=== PATIENT | female | born 1940 | race Caucasian/White ===

== ENCOUNTER 2016-11-26 15:18 | Emergency (ER) | payer MEDICARE, OTHER ==
--- NOTE | ~2016-11-26 | ER ---
PATIENT'S NAME: ALFREDO [facility] AGE: 76 Y [address] ROOM: [place] [address] LOCATION: ED ADMIT DATE: 11/26/2016 ER/Outpatient Report DISCHARGE DATE: 11/26/2016 FAMILY PHYSICIAN: Romina Boggs MD ATTENDING PHYSICIAN: Celina Field Time of Arrival: 1518. Time Seen: 1518. IDENTIFICATION: 76-year-old female. CHIEF COMPLAINT: Syncopal episode. HISTORY OF PRESENT ILLNESS: The patient is a 76-year-old female from [place], [place], who was here watching volleyball at [employer]. She became very hot and felt like she was going to pass out and slumped over her daughter. She did not fall and did not get injured. She does have a pacemaker for what sounds like sick sinus syndrome. She has felt like this before prior to her pacemaker. She denies any chest pain. She denies any cough or shortness of breath. ALLERGIES: LEXAPRO. CURRENT MEDICATIONS: 1. Lisinopril 10 mg daily. 2. Atorvastatin 20 mg at bedtime. 3. Metoprolol 25 mg b.i.d. 4. Lumigan eye drops at bedtime. 5. Combigan eyedrops b.i.d. 6. Multivitamin daily. 7. Calcium 2 tabs daily. 8. Aspirin 81 mg daily. 9. [place] 5/325 q.4 hours p.r.n. MEDICAL PROBLEMS: Diverticulitis, glaucoma, sounds like she has sick sinus syndrome status post pacemaker, hypertension. PRIOR SURGERIES: Colon resection for diverticulitis and hysterectomy. SOCIAL HISTORY: PATIENT'S NAME: ALFREDO [facility] AGE: 76 Y [address] ROOM: [place] [address] LOCATION: ED ADMIT DATE: 11/26/2016 ER/Outpatient Report DISCHARGE DATE: 11/26/2016 FAMILY PHYSICIAN: Romina Boggs MD ATTENDING PHYSICIAN: Celina Field The patient is . Lives in [place]. Her primary care physician is Romina Boggs. Tobacco use, denies. Alcohol use, denies. Drug use, denies. REVIEW OF SYSTEMS: All systems reviewed and negative other than what is noted in the HPI. The patient has had some heartburn. PHYSICAL EXAMINATION: VITAL SIGNS: Pulse 89, respirations 16, temperature 97.8, saturations 96%, blood pressure 132/81. GENERAL: This is a 76-year-old female, in no acute distress. HEENT: Unremarkable. LUNGS: Clear to auscultation. HEART: Regular rate and rhythm. No murmur, rub, or gallop. ABDOMEN: Bowel sounds present. Soft, nondistended. No hepatosplenomegaly. No palpable masses. Nontender. SKIN: [place], warm, and dry. No lesions or rashes noted. NEUROLOGIC: No focal deficit. IMAGING: Portable chest x-ray, no acute process, pending Radiology over-read. Head CT, no acute process per Radiology. ER COURSE: The patient was given a GI cocktail for her heartburn. Orthostatic blood pressures were obtained and she was not orthostatic. Please refer to the nursing notes. Her pacemaker was interrogated by [employer] showing no arrhythmia, normal device function. Her initial EKG on arrival showed normal sinus rhythm at 82 beats per minute. No acute ST elevation or depression. CBC is within normal limits. INR 1.0.1. Sodium 137, potassium 3.5, chloride 102, CO2 of 21, BUN 29, creatinine 1.4. No previous creatinine available for comparison. Blood sugar 199. Liver enzymes normal. Magnesium 2.2. CK is 57, CK-MB 0.8, troponin I less than 0.040. Two-hour EKG and enzymes are pending at the time of this dictation and the patient was signed out to Dr. Irvin at shift change for followup on these things. If all is well, she was given 20 mEq of KCl for her mild hypokalemia. If her next set of enzymes and EKG are normal, she will be discharged with: 1. Syncope. 2. Hypokalemia. 3. Acute kidney injury. PLAN: Rest and fluids and follow up with her primary care physician in 1-2 days. Follow up sooner if any problems or concerns. The patient understands and agrees, and all questions have been answered at this time and again Dr. Irvin PATIENT'S NAME: TIMOTHY FUENTES [facility] AGE: 76 Y [address] ROOM: [place] [address] LOCATION: [facility] ADMIT DATE: 11/26/2016 ER/Outpatient Report DISCHARGE DATE: 11/26/2016 FAMILY PHYSICIAN: Romina Boggs MD ATTENDING PHYSICIAN: Celina Field will follow up on her to our EKG and enzymes. CELINA FIELD MD CAR/modl /[id number] d: 11/29/162101 t: 12/01/16 0759, OUTPATIENT REPORT
--- NOTE | ~2016-11-26 | ER ---
PATIENT'S NAME: TIMOTHY FUENTES [facility] AGE: 76 Y [address] ROOM: [place] [address] LOCATION: [facility] ADMIT DATE: 11/26/2016 ER/Outpatient Report DISCHARGE DATE: 11/26/2016 FAMILY PHYSICIAN: Romina Boggs MD ATTENDING PHYSICIAN: Celina Villavicencio HISTORY OF PRESENT ILLNESS: This patient is a 76-year-old female, who presented to the emergency room with syncope. This happened at a volleyball game at [facility]. [place] hot, slumped over. Brought to the emergency room by paramedics by ambulance for evaluation. The patient saw Dr. Villavicencio here. See Dr. Villavicencio's dictation in regard to chief complaint, history of present illness, past medical history, physical exam, laboratory, EKG, chest x-ray study results. Dr. Villavicencio did draw second set of cardiac enzymes. The first set were normal. She asked me to follow up with the second set results, final diagnosis, and treatment plan. The patient's second set of cardiac enzymes were normal. CPK was 56. CK-MB was 1 with a troponin of less than 0.04. According Dr. Villavicencio, her pacemaker showed no evidence of arrhythmia. IMPRESSION: 1. Syncope. 2. Hypokalemia. The patient was given potassium in the emergency department. 3. Acute renal injury. PLAN: The patient dismissed home. Observation. Activity as tolerated. Continue present home medications and care. Rest and good fluid intake. Follow up with primary physician in 1 to 2 days. Discussion ensued with the patient concerning findings and recommendations. She and her family understand. MD NERIS QUINTANILLA/modl /[id number] d: 11/26/162130 t: 11/27/16 181, OUTPATIENT REPORT
[2016-11-26 15:47] LABS: BASOPHIL % 0.5 %; EOSINOPHIL # 0.1 K/uL (0.0-0.5); EOSINOPHIL % 1.2 %; HEMATOCRIT 45.1 % (33.0-46.0); HEMOGLOBIN 15.6 g/dL (10.0-15.0); IMMATURE GRANULOCYTE # 0.1 K/uL (0.0-0.3); IMMATURE GRANULOCYTE % 0.8 %; LYMPHOCYTE % 30.9 %; MCH 30.5 pg (27.0-34.0); MCHC 34.6 gm/dL (32.0-36.5); MCV 88.3 fl (83.0-98.0); MONOCYTE # 0.8 K/uL (0.0-1.0); MONOCYTE % 11.6 %; MPV 10.1 fl (9.4-12.4); NEUTROPHIL # (ANC) 3.6 K/uL (1.8-7.8); NRBC % 0 /100WBC (0-0.00); PLATELET COUNT 187 K/uL (150-450); RBC 5.11 M/uL (3.50-5.50); RDW-CV 12.3 % (11.9-14.6); WBC 6.5 K/uL (4.0-11.0)
[2016-11-26 15:56] LABS: INR - (THERAPEUTIC) 1.01 (0.92-1.07); PROTIME 10.6 SECONDS (9.8-11.4); PTT 25 SECONDS (25-32)
[2016-11-26 16:05] LABS: ALBUMIN 3.8 gm/dL (3.5-5.0); ALK PHOS 113 IU/L (33-138); ALT 32 IU/L (12-78); ANION GAP 17.5 (10.0-19.0); AST 21 IU/L (10-40); BLOOD UREA NITROGEN 29 mg/dL (6-24); CALCIUM 8.9 mg/dL (8.5-10.5); CHLORIDE 102 mMol/L (96-110); CO2 21 mMol/L (22-32); CPK 57 IU/L (21-215); CREATININE 1.4 mg/dL (0.5-1.1); ESTIMATED GFR (MDRD EQUATION) 36; MAGNESIUM 2.2 mg/dL (1.3-2.6); POTASSIUM 3.5 mMol/L (3.7-5.1); SODIUM 137 mMol/L (135-145); TOTAL BILIRUBIN 0.3 mg/dL (0.0-1.5); TOTAL PROTEIN 7.3 g/dL (6.0-8.4)
[2016-11-26 18:06] LABS: CPK 56 IU/L (21-215)
== END 2016-11-26 18:40 | disposition disaster alternative care site (69) ==
LOC: GMED 15:18
PROVIDERS: Family Medicine
DX: R55 Syncope and collapse (principal); E87.6 Hypokalemia; N17.9 Acute kidney failure, unspecified; I10 Essential (primary) hypertension; Z88.8 Allergy status to other drugs, medicaments and biological substances; Z79.899 Other long term (current) drug therapy; Z79.82 Long term (current) use of aspirin; Z90.49 Acquired absence of other specified parts of digestive tract; Z95.0 Presence of cardiac pacemaker
CPT/HCPCS: C9113

== ENCOUNTER → 2016-11-26 | Outpatient (CLI) | payer MEDICARE, OTHER | END | disposition disaster alternative care site (69) | LOC: GAMB 14:57 | DX: R53.1 Weakness (principal); R69 Illness, unspecified | CPT/HCPCS: A0425; A0427 ==